=== PATIENT | female | born 1940 | race Caucasian/White ===

== ENCOUNTER 2018-01-11 19:02 | Observation (INO) | payer OTHER, BC ==
--- NOTE | 2018-01-11 19:42 | PDOC ---
History of Present Illness - General Chief Complaint: Back Pain Stated Complaint: BACK PAIN History Source: Patient - History of Present Illness Initial Comments: The patient is a 77F with a history of A-fib (xarelto), HTN and OA who presents with 12 days of intermittent right lower back pain and 2 days of dizziness with 4 episodes of retching this morning. She reports that 12d ago picked up two heavy cartons, was turning to the right, and experienced a spasm in her right lower back. The pain was described as sharp, non-radiating, and not associated with any other symptoms. She tried taking Tylenol and Ibuprofen with little relief. She was then evaluated by her PCP who prescribed lidoderm patches and Robaxin which she started taking two days ago. She endorses pain relief from the robaxin and a reduction in the number and length of time of spasms since that time. However, she has noticed 2d of intermittent dizziness which she associates with the Robaxin usage. She states that she was feeling dizzy yesterday s/p Robaxin. This morning she also experienced dizziness when standing from getting out of bed before taking her medication which was associated with diaphoresis. She denies chest pain, SOB , fall, or changes in vision or sensation 01/11/18 20:14 Past History - Past Medical History Allergies/Adverse Reactions: Allergies Allergy/AdvReac Type Severity Reaction Status Date / Time ampicillin [Ampicillin] Allergy Verified 01/11/18 19:48 Penicillins Allergy Verified 01/11/18 19:48 Sulfa (Sulfonamide Allergy Verified 01/11/18 19:48 Antibiotics) Tetracyclines Allergy Verified 01/11/18 19:48 erythromycin base AdvReac Rash Verified 01/11/18 19:48 [Erythromycin Base] Home Medications: Ambulatory Orders Aspirin 81 mg PO DAILY 10/04/12 Fluoxetine HCl [Prozac] 20 mg PO DAILY 10/04/12 Oxybutynin Chloride [Oxybutynin Chloride ER] 10 mg PO HS 10/04/12 Atorvastatin Ca [Lipitor] 10 mg PO HS 09/03/13 Diclofenac Sodium 75 mg PO BID 09/03/13 Diltiazem HCl [Diltiazem 24Hr ER] 120 mg PO DAILY 09/03/13 L.acidoph,Paracasei, B.lactis [Probiotic] 1 each PO DAILY 05/02/16 Metoprolol Succinate [Toprol XL -] 25 mg PO DAILY 05/02/16 Furosemide [Lasix -] 20 mg PO DAILY #30 tablet 05/03/16 Metoprolol Succinate [Toprol XL -] 25 mg PO DAILY tab.sr.24h 05/03/16 Rivaroxaban [Xarelto -] 20 mg PO DAILY #30 tablet 05/03/16 Solifenacin Succinate [Vesicare -] 5 mg PO DAILY tab 05/03/16 Anemia: No Asthma: No Cancer: No Cardiac Disorders: Yes (arrythmia/chestpain) CVA: Yes (TIA) COPD: No CHF: No Dementia: No Diabetes: No GI Disorders: No Disorders: No HTN: Yes Hypercholesterolemia: Yes Liver Disease: No Seizures: No Thyroid Disease: No - Surgical History Abdominal Surgery: No Appendectomy: No Cardiac Surgery: No Cholecystectomy: No Lung Surgery: No Neurologic Surgery: No Orthopedic Surgery: Yes (arthroscopic/rt knee) - Suicide/Smoking/Psychosocial Hx Smoking Status: No Smoking History: Never smoked Have you smoked in the past 12 months: No Number of Cigarettes Smoked Daily: 0 Cigars Per Day: 0 Hx Alcohol Use: No Drug/Substance Use Hx: No Substance Use Type: None Hx Substance Use Treatment: No Review of Systems - Review of Systems Able to Perform ROS?: Yes Comments:: GENERAL/CONSTITUTIONAL: No fever or chills. HEAD, EYES, EARS, NOSE AND THROAT: No change in vision. No ear pain or discharge. No sore throat. CARDIOVASCULAR: +BLE swelling; No chest pain or shortness of breath RESPIRATORY: No cough, wheezing, or hemoptysis. GASTROINTESTINAL: +N/V associated with dizziness; denies abdominal pain, diarrhea, or blood in stool GENITOURINARY: No dysuria, frequency, or change in urination MUSCULOSKELETAL: per HPI SKIN: No rash NEUROLOGIC: No headache, loss of consciousness, or change in strength/sensation ENDOCRINE: No increased thirst. No abnormal weight change HEMATOLOGIC/LYMPHATIC: No anemia, easy bleeding, or history of blood clots 01/11/18 20:01 Is the patient limited French proficient: No *Physical Exam - Physical Exam Comments: GENERAL: Awake, alert, and fully oriented, in no acute distress HEAD: No signs of trauma, normocephalic, atraumatic EYES: PERRLA, EOMI, sclera anicteric, conjunctiva clear ENT: Hearing grossly normal, nares patent, oropharynx clear without exudates. Moist mucosa NECK: Normal ROM, supple, no lymphadenopathy, JVD, or masses LUNGS: No distress, speaks full sentences, clear to auscultation bilaterally HEART: Bradycardic, regular rhythm, no murmurs appreciated, peripheral pulses normal and equal bilaterally ABDOMEN: Soft, nontender, normoactive bowel sounds BACK: Right lower back tenderness to palpation. No bruising noted or mass palpated. EXTREMITIES : BLE 2+ edema. Normal range of motion. No clubbing or cyanosis. NEUROLOGICAL: Cranial nerves II through XII grossly intact. Normal speech, walks with walker SKIN: Warm, Dry 01/11/18 20:01 ED Treatment Course - LABORATORY CBC & Chemistry Diagram: 01/11/18 21:48 01/11/18 22:38 Medical Decision Making - Medical Decision Making The patient is a 77F with a history of afib (xarelto), HTN and OA who presents with 12 days of back spasm, 2 days of dizziness, and 4 episodes of retching this morning Ddx: Back spasm, Orthostatic hypotension, Medication side-effect, cardiogenic/ dysrhythmia ED Course BMP, CBC, cardiac enzymes, ECG, CXR Orthostatic vitals Will give Flexeril 10mg PO once for back spasm 01/11/18 20:07 Patient sitting in chair as pain is better while sitting versus laying. Denies current dizziness. Is tolerating PO. Breathing comfortably on room air. Right lower back mildly TTP 01/11/18 21:02 ECG significant for Bradycarida, a-fib with regular rhythm Pending CMP and Cardiac enzyme re-draw Will plan to discharge patient with Flexeril and PCP f/u if symptoms improved and cardiac/metabolic w/u negative I have transferred care of the patient to Dr. Keith and discussed the clinical presentation, work-up and ED course thus far. 01/12/18 00:01 *DC/Admit/Observation/Transfer Diagnosis at time of Disposition: Back spasm Atrial fibrillation Qualifiers: Atrial fibrillation type: chronic Qualified Code(s): I48.2 - Chronic atrial fibrillation - Discharge Dispostion Disposition: HOME Condition at time of disposition: Stable Decision to Admit order: No - Referrals Referrals: Vira Brownlee MD [Primary Care Provider] - - Patient Instructions Printed Discharge Instructions: DI for Dizziness-Nonvertigo, DI for Back Spasm - Post Discharge Activity
[2018-01-11 20:05] LABS: URINE APPEARANCE CLOUDY; URINE BILIRUBIN NEGATIVE (<2.0 mg/dL); URINE COLOR LTYELLOW; URINE GLUCOSE (UA) NEGATIVE (NEGATIVE); URINE KETONE NEGATIVE (NEGATIVE); URINE NITRITE NEGATIVE (NEGATIVE); URINE PROTEIN NEGATIVE (NEGATIVE); URINE UROBILINOGEN NEGATIVE mg/dL (0.2-1.0)
[2018-01-11 20:08] LABS: URINE LEUK ESTERASE 1+ (NEGATIVE)
[2018-01-11 20:13] LABS: EPI CELLS RARE /HPF (FEW); GRANULAR CASTS 1 /lpf
[2018-01-11 22:14] LABS: HEMOGLOBIN 15.1 GM/dL (10.7-15.3); MCH 30.5 pg (25.7-33.7); MCHC 33.5 g/dl (32.0-36.0); MEAN CELL VOLUME 90.9 fl (80-96); MEAN PLT VOLUME 8.3 fl (7.5-11.1); PLATELET COUNT 324 K/MM3 (134-434); RBC 4.95 M/mm3 (3.60-5.2); RDW 13.7 % (11.6-15.6)
[2018-01-11] MEDS ORDERED: CYCLOBENZAPRINE HCL 10 MG TABLET (FP) ONE (22:47)
[2018-01-11] MEDS ORDERED: CYCLOBENZAPRINE HCL 10 MG TABLET (FP) PO STA (22:50)
--- NOTE | 2018-01-11 23:32 | PDOC ---
Attending Attestation - HPI HPI: 01/12/18 00:08 The patient is a 77 year old Female with a significant past medical history of A -fib (on xarelto), HTN and OA, who presents with intermittent right lower back pain since picking up two heavy cartons 12 days ago, as well as, new onset of dizziness for 48 hours. She states she was lifting the heavy cartong while twisting right when she felt "a spasm" in her right lower back. she described the pain as sharp, non-radiating, and not associated with any other symptoms. She reportedly tried Tylenol and Ibuprofen with little relief. She was then evaluated by her PCP who prescribed lidocaine patches and Robaxin which she started taking two days ago and offered mild pain relief She denies any bowel or fecal incontinence. She denies any new bladder changes, - Physicial Exam PE: 01/12/18 00:13 GENERAL: Well developed, well nourished. Awake and alert. No acute distress. HEENT: Normocephalic, atraumatic. PERRLA, EOMI. No conjunctival pallor. Sclera are non- icteric. Moist mucous membranes. Oropharynx is clear. NECK: Supple. Full ROM. No JVD. Carotid pulses 2+ and symmetric, without bruits. No thyromegaly. No lymphadenopathy. CARDIOVASCULAR: (+) Irregularly irregular. No murmurs, rubs, or gallops. Distal pulses are 2+ and symmetric. PULMONARY: No evidence of respiratory distress. Lungs clear to auscultation bilaterally. No wheezing, rales or rhonchi. ABDOMINAL: (+) protuberant. Soft. Non-tender. Non-distended. No rebound or guarding. No organomegaly. Normoactive bowel sounds. MUSCULOSKELETAL (+) paraspinal tenderness near L1,L2. Normal range of motion at all joints. No bony deformities or tenderness. No CVA tenderness. EXTREMITIES: (+) Chronic venous stasis. No cyanosis. No clubbing. No edema. No calf tenderness. SKIN: Warm and dry. Normal capillary refill. No rashes. No jaundice. NEUROLOGICAL: Alert, awake, appropriate. Cranial nerves 2-12 intact. Normoreflexic in the upper and lower extremities. Normal speech. Toes are down-going bilaterally. Walks assisted with walker at baseline. PSYCHIATRIC: Cooperative. Good eye contact. Appropriate mood and affect. - Medical Decision Making 01/12/18 00:14 Documentation prepared by Carolin Davila, acting as medical safety director for Rosa Ball MD
[2018-01-12] MEDS ORDERED: ACETAMINOPHEN 1000 MG/100 ML VIAL (NON FORMULARY) IVPB ONE (00:55)
[2018-01-12] MEDS ORDERED: ACETAMINOPHEN INJECTION 100 ML IVPB ONE (01:12)
[2018-01-12 01:19] LABS: ALBUMIN 3.1 g/dl (3.4-5.0); ALK PHOS 79 U/L (45-117); ANION GAP 9 (8-16); BILIRUBIN,TOTAL 0.4 mg/dL (0.2-1.0); BLOOD UREA NITROGEN 18 mg/dL (7-18); CALCIUM 9.2 mg/dL (8.5-10.1); CHLORIDE 103 mmol/L (98-107); CO2 28 mmol/L (21-32); CREATININE 0.9 mg/dL (0.55-1.02); GLUCOSE,RANDOM 160 mg/dL (74-106); SGPT/ALT 21 U/L (12-78); SODIUM 140 mmol/L (136-145); TOT PROT 6.7 g/dl (6.4-8.2)
[2018-01-12 01:25] LABS: POTASSIUM 4.3 mmol/L (3.5-5.1); SGOT/AST 25 U/L (15-37)
[2018-01-12] MEDS ORDERED: morphine CARPU-JECT 2 MG/1 ML DISP.SYRIN IVPUSH ONE (02:29)
[2018-01-12] MEDS ORDERED: MORPHINE SULFATE 2 MG/ML VIAL ONE (02:34)
--- NOTE | 2018-01-12 02:38 | PDOC ---
*Physical Exam - Vital Signs Last Vital Signs Temp Pulse Resp BP Pulse Ox 98.0 F 52 L 18 146/98 100 01/11/18 19:05 01/11/18 19:05 01/11/18 19:05 01/11/18 19:05 01/11/18 19:05 - Physical Exam Comments: General: Comfortable sitting up in chair HEENT: PERRL, EOMI, MMM, voice normal, normal neck ROM, no LAD Cards: Bradycardic and irregular, no murmur appreciated Pulm: Comfortable on room air, clear to auscultation bilaterally Abd: Soft, nontender, nondistended Back: TTP on lower right back. No step-offs or deformities noted : No CVA tenderness Ext: Atraumatic. 2+ b/l LE edema. ROM intact. Strength 5/5 and equal bilaterally Vasc: Extremities WWP. Palpable radial pulses bilaterally Neuro: A&Ox3, CN grossly intact, normal speech, motor/sensory grossly intact and symmetric Psych: Mood appropriate to situation ED Treatment Course - LABORATORY CBC & Chemistry Diagram: 01/11/18 21:48 01/12/18 00:30 - ADDITIONAL ORDERS Additional order review: Laboratory Results 01/12/18 01/12/18 01/11/18 00:30 00:30 22:38 Sodium 140 Cancelled Potassium 4.3 Cancelled Chloride 103 Cancelled Carbon Dioxide 28 Cancelled Anion Gap 9 Cancelled BUN 18 Cancelled Creatinine 0.9 Cancelled Creat Clearance w eGFR > 60 Cancelled Random Glucose 160 H Cancelled Calcium 9.2 Cancelled Total Bilirubin 0.4 Cancelled AST 25 Cancelled ALT 21 Cancelled Alkaline Phosphatase 79 Cancelled Creatine Kinase 69 Cancelled Troponin I < 0.02 Cancelled Total Protein 6.7 Cancelled Albumin 3.1 L Cancelled Urine Color Urine Appearance Urine pH Ur Specific [place] Urine Protein Urine Glucose (UA) Urine Ketones Urine Blood Urine Nitrite Urine Bilirubin Urine Urobilinogen Ur Leukocyte Esterase Urine WBC (Auto) Urine RBC (Auto) Ur Epithelial Cells Granular Casts 01/11/18 19:50 Sodium Potassium Chloride Carbon Dioxide Anion Gap BUN Creatinine Creat Clearance w eGFR Random Glucose Calcium Total Bilirubin AST ALT Alkaline Phosphatase Creatine Kinase Troponin I Total Protein Albumin Urine Color Ltyellow Urine Appearance Cloudy Urine pH 7.0 Ur Specific [place] 1.009 Urine Protein Negative Urine Glucose (UA) Negative Urine Ketones Negative Urine Blood Negative Urine Nitrite Negative Urine Bilirubin Negative Urine Urobilinogen Negative Ur Leukocyte Esterase 1+ H Urine WBC (Auto) 15 Urine RBC (Auto) <1 Ur Epithelial Cells Rare Granular Casts 1 01/11/18 21:48 RBC 4.95 MCV 90.9 MCHC 33.5 RDW 13.7 MPV 8.3 - Medications Given in the ED: ED Medications Discontinued Medications Generic Name Dose Route Start Last Admin Trade Name Rico PRN Reason Stop Dose Admin Acetaminophen 1,000 mg 01/12/18 00:55 01/12/18 01:18 Ofirmev Injection - IVPB 01/12/18 00:56 1,000 mg ONCE ONE Administration Cyclobenzaprine HCl 10 mg 01/11/18 22:50 01/11/18 22:51 Flexeril - PO 01/11/18 22:51 10 mg ONCE STA Administration Medical Decision Making - Medical Decision Making 01/12/18 02:39 Rhonda Monroy is a 77yo woman with a PMH of a-fib, HTN, and OA who presents with low back pain for 12 days, improved after starting lidocaine patches and methocarbamol, and now with dizziness and diaphoresis associated with using methocarbamol. - Workup so far is notable for mild WBC elevation to 11, UA suggestive of possible UTI. - CMP returned without any concerning abnormalities - Xray spine ordered to evaluate for possible spinal fracture - Morphine for continued back pain 01/12/18 03:14 - Xrays of lumbar spine reviewed. Concern for compression fracture at L2. - Ms Monroy questioned about any possible falls. Denies that she fell, only started to have pain when lifting boxes - Reports continued back pain not improved with morphine. - CT lumbar spine ordered to better evaluate possible fracture. Discussed with Ms Monroy who agrees to the CT. 01/12/18 05:23 - Decision made to admit to obs due to intractable back pain. Not improved by pain medications in ED - CT still pending, will evaluate when completed - Spoke to hospitalist regarding admission to obs. Discussed with Dr Ball and Dr Tidwell. *DC/Admit/Observation/Transfer Diagnosis at time of Disposition: Back spasm Atrial fibrillation Qualifiers: Atrial fibrillation type: chronic Qualified Code(s): I48.2 - Chronic atrial fibrillation Compression fracture of lumbar vertebra Qualifiers: Encounter type: initial encounter Lumbar vertebra fracture level: L2 Fracture type: closed Qualified Code(s): S32.020A - Wedge compression fracture of second lumbar vertebra, initial encounter for closed fracture - Discharge Dispostion Condition at time of disposition: Stable Decision to Admit order: Yes - Referrals Referrals: Vira Brownlee MD [Primary Care Provider] - - Patient Instructions - Post Discharge Activity
[2018-01-12] MEDS ORDERED: KETOROLAC TROMETHAMINE 30 MG/1 ML VIAL IVPUSH ONE (04:14)
[2018-01-12] MEDS ORDERED: KETOROLAC TROMETHAMINE 30 MG/1 ML VIAL ONE (04:17)
[2018-01-12] MEDS ORDERED: SENNOSIDES 8.6MG TABLET (FP) PO PRN (05:28)
[2018-01-12] MEDS ORDERED: DOCUSATE SODIUM 100 MG CAPSULE (FP) PO PRN (05:28)
[2018-01-12] MEDS ORDERED: MORPHINE SULFATE 2 MG/ML VIAL IVPUSH PRN (05:28)
[2018-01-12] MEDS ORDERED: KETOROLAC TROMETHAMINE 15 MG/ML VIAL IVPUSH PRN (05:28)
--- NOTE | 2018-01-12 05:43 | PN ---
Teaching Attending Note Name of Resident: Mallorie Charles ATTENDING PHYSICIAN STATEMENT I saw and evaluated the patient. I reviewed the resident's note and discussed the case with the resident. I agree with the resident's findings and plan as documented. SUBJECTIVE: The patient is a 77 year old Female with a significant past medical history of A -fib (on xarelto), HTN and OA, who presents with intermittent right lower back pain since picking up two heavy cartons 12 days ago, as well as, new onset of dizziness for 48 hours. She states she was lifting the heavy carton (of books) while twisting right when she felt "a spasm" in her right lower back. She described the pain as sharp, non-radiating, and not associated with any other symptoms. She uses a walker to get around. She reportedly tried Tylenol and Ibuprofen with little relief. She was then evaluated by her PCP who prescribed lidocaine patches and Robaxin which she started taking two days ago and offered mild pain relief. She denies any bowel or fecal incontinence. She denies any new bladder changes, OBJECTIVE: Obese and in pain. Sitting on wheelchair. Vital Signs Period Temp Pulse Resp BP Sys/Kent Pulse Ox Last 24 Hr 98.0 F 52 18 146/98 100 HEENT: No Jaundice, eye redness or discharge, PERRLA, EOMI. Normocephalic, atraumatic. External ears are normal and hearing is grossly intact. No nasal discharge. Neck: Supple, nontender. No palpable adenopathy or thyromegaly. No JVD Chest: Good effort. Clear to auscultation and percussion. Heart: Regular. No S3, rub or murmur Abdomen: Not distended, soft, nontender and no HSM. No rebound or guarding. Normoactive bowel sounds. Ext: Peripheral pulses intact. No leg edema. Skin: Warm and dry. No petechiae, rash or ecchymosis. Neuro: Alert. Oriented x3. CN 2-12 grossly intact. Point tenderness in lumbosacral area. Sensation grossly intact in all four extremities and DTR are symmetric. Home Medications Medication Instructions Recorded Aspirin 81 mg PO DAILY 10/04/12 Fluoxetine HCl [Prozac] 20 mg PO DAILY 10/04/12 Oxybutynin Chloride [Oxybutynin 10 mg PO HS 10/04/12 Chloride ER] Atorvastatin Ca [Lipitor] 10 mg PO HS 09/03/13 Diclofenac Sodium 75 mg PO BID 09/03/13 Diltiazem HCl [Diltiazem 24Hr ER] 120 mg PO DAILY 09/03/13 L.acidoph,Paracasei, B.lactis 1 each PO DAILY 05/02/16 [Probiotic] Metoprolol Succinate [Toprol XL -] 25 mg PO DAILY 05/02/16 Furosemide [Lasix -] 20 mg PO DAILY #30 tablet 05/03/16 Metoprolol Succinate [Toprol XL -] 25 mg PO DAILY tab.sr.24h 05/03/16 Rivaroxaban [Xarelto -] 20 mg PO DAILY #30 tablet 05/03/16 Solifenacin Succinate [Vesicare -] 5 mg PO DAILY tab 05/03/16 Current Medications Generic Name Dose Route Start Last Admin Trade Name Freq PRN Reason Stop Dose Admin Aspirin 81 mg 01/12/18 10:00 Asa - PO DAILY [facility] Atorvastatin Calcium 10 mg 01/12/18 22:00 Lipitor - PO HS [facility] Diltiazem HCl 120 mg 01/12/18 10:00 Cardizem Cd - PO DAILY [facility] Docusate Sodium 100 mg 01/12/18 05:28 Colace - PO BID PRN CONSTIPATION Fluoxetine HCl 20 mg 01/12/18 10:00 Prozac - PO DAILY [facility] Furosemide 20 mg 01/12/18 10:00 Lasix - PO DAILY [facility] Ketorolac Tromethamine 15 mg 01/12/18 05:28 Toradol Injection - IVPUSH 01/17/18 05:27 Q6H PRN PAIN LEVEL 1-5 Lactobacillus Acidophilus 1 tab 01/12/18 10:00 Bacid - PO DAILY [facility] Metoprolol Succinate 25 mg 01/12/18 10:00 Toprol Xl - PO DAILY [facility] Morphine Sulfate 2 mg 01/12/18 05:28 Morphine Sulfate IVPUSH Q4H PRN PAIN LEVEL 6-10 Oxybutynin Chloride 10 mg 01/12/18 22:00 Ditropan - PO HS [facility] Rivaroxaban 20 mg 01/12/18 18:00 Xarelto - PO DAILY@1800 [facility] Senna 2 tab 01/12/18 05:28 Senna - PO HS PRN CONSTIPATION Solifenacin 5 mg 01/12/18 10:00 Vesicare - PO DAILY MARK Abnormal Lab Results 01/11/18 01/11/18 01/12/18 19:50 21:48 00:30 WBC 11.0 H Random Glucose 160 H Albumin 3.1 L Ur Leukocyte Esterase 1+ H ASSESSMENT AND PLAN: 1. Intractable Low Back Pain - Xray shows possible L2 compression fracture and Lumbosacral CT scan is pending. Based on the results of the CT scan may need to get MRI of lumbosacral spine. Will treat with IV morphine, IV toraldol, prednisone 40 mg po qd, warm compress and lidocaine patch. Consult PT, neurology and Ortho. 2. Afib - Rate controlled. Continue xarelto 3. Incompletely-treated UTI - Was treated with Cipro 2 weeks ago for UTI. Has pyuria (15) and leukocyte esterase but no UTI symptoms. Will get a straight cath sample of urine for repeat UA to decide whether further treatment is warranted. 4. Obesity - Will provide patient all the necessary assistance , counseling and positive reinforcement to facilitate weight loss. Consult supervisor inspection and testing. 5. Hyperglycemia - Will check HbA1c - may have prediabetes. 6. DVT prophylaxis - Heparin 5000u sq tid. 7. Advance directives - Full code
--- NOTE | 2018-01-12 06:25 | HP ---
CHIEF COMPLAINT: Low back pain PCP: HISTORY OF PRESENT ILLNESS: Patient is a 77 year old female with past medical history of A.Fib (on Xarelto) , CHF, HTN and OA, came in the ED c/o sharp, nonradiating low back pain worsened with activity. It started 12 days ago when patient lifted heavy boxes and immediately experienced low back pain. She took Tylenol and Ibuprofen which only provided minimal relief. Two days prior, with persistence of low back pain , patient visited her PCP and was given lidocaine patches and Robaxin, which provided mild relief. Persistence of the low back pain, worse on the right side , prompted patient to go to ED. Patient denies bowel changes, bladder incontinence, fever, N/V, numbness or tingling. ER course was notable for: (1)WBC 11.0 (2)Leukocyte esterase on UA +1 (3)Lumbar X-ray - L2 spine compression Recent Travel: Denies recent travel PAST MEDICAL HISTORY: Atrial Fibrillation Hypertension Osteoarthritis CHF PAST SURGICAL HISTORY: Social History: Smoking:nonsmoker Alcohol:non ETOH use Drugs: no illicit drug use Family History: Allergies ampicillin [Ampicillin] Allergy (Verified 01/11/18 19:48) Penicillins Allergy (Verified 01/11/18 19:48) Sulfa (Sulfonamide Antibiotics) Allergy (Verified 01/11/18 19:48) Tetracyclines Allergy (Verified 01/11/18 19:48) erythromycin base [Erythromycin Base] Adverse Reaction (Verified 01/11/18 19:48) Rash Clindamycin Allergy HOME MEDICATIONS: Home Medications Medication Instructions Recorded Aspirin 81 mg PO DAILY 10/04/12 Fluoxetine HCl [Prozac] 20 mg PO DAILY 10/04/12 Oxybutynin Chloride [Oxybutynin 10 mg PO HS 10/04/12 Chloride ER] Atorvastatin Ca [Lipitor] 10 mg PO HS 09/03/13 Diclofenac Sodium 75 mg PO BID 09/03/13 Diltiazem HCl [Diltiazem 24Hr ER] 120 mg PO DAILY 09/03/13 L.acidoph,Paracasei, B.lactis 1 each PO DAILY 05/02/16 [Probiotic] Metoprolol Succinate [Toprol XL -] 25 mg PO DAILY 05/02/16 Furosemide [Lasix -] 20 mg PO DAILY #30 tablet 05/03/16 Metoprolol Succinate [Toprol XL -] 25 mg PO DAILY tab.sr.24h 05/03/16 Rivaroxaban [Xarelto -] 20 mg PO DAILY #30 tablet 05/03/16 Solifenacin Succinate [Vesicare -] 5 mg PO DAILY tab 05/03/16 REVIEW OF SYSTEMS CONSTITUTIONAL: Absent: fever, chills, diaphoresis, generalized weakness, malaise, loss of appetite, weight change HEENT: Absent: rhinorrhea, nasal congestion, throat pain, throat swelling, difficulty swallowing, mouth swelling, ear pain, eye pain, visual changes CARDIOVASCULAR: Absent: chest pain, syncope, palpitations, irregular heart rate, lightheadedness , peripheral edema RESPIRATORY: Absent: cough, shortness of breath, dyspnea with exertion, orthopnea, wheezing, stridor, hemoptysis GASTROINTESTINAL: Absent: abdominal pain, abdominal distension, nausea, vomiting, diarrhea, constipation, melena, hematochezia GENITOURINARY: Absent: dysuria, frequency, urgency, hesitancy, hematuria, flank pain, genital pain MUSCULOSKELETAL: +low back pain Absent: myalgia, arthralgia, joint swelling, neck pain SKIN: Absent: rash, itching, pallor HEMATOLOGIC/IMMUNOLOGIC: Absent: easy bleeding, easy bruising, lymphadenopathy, frequent infections ENDOCRINE: Absent: unexplained weight gain, unexplained weight loss, heat intolerance, cold intolerance NEUROLOGIC: Absent: headache, focal weakness or paresthesias, dizziness, unsteady gait, seizure, mental status changes, bladder or bowel incontinence PSYCHIATRIC: Absent: anxiety, depression, suicidal or homicidal ideation, hallucinations. PHYSICAL EXAMINATION Vital Signs - 24 hr 01/11/18 19:05 Temperature 98.0 F Pulse Rate 52 L Respiratory 18 Rate Blood Pressure 146/98 O2 Sat by Pulse 100 Oximetry (%) GENERAL: Awake, alert, and fully oriented, in no acute distress. HEAD: Normal with no signs of trauma. EYES: Pupils equal, round and reactive to light, extraocular movements intact, sclera anicteric, conjunctiva clear. No lid lag. EARS, NOSE, THROAT: Ears normal, nares patent, oropharynx clear without exudates. Moist mucous membranes. NECK: Normal range of motion, supple without lymphadenopathy, JVD, or masses. LUNGS: Breath sounds equal, clear to auscultation bilaterally. No wheezes, and no crackles. No accessory muscle use. HEART: Regular rate and rhythm, normal S1 and S2 without murmur, rub or gallop. ABDOMEN: Soft, nontender, not distended, normoactive bowel sounds. No hepatomegaly or splenomegaly. MUSCULOSKELETAL: Limited ROM on flexion, extension, lateral flexion and rotation of back. +Tenderness on R lower back. Sensation intact on b/l LE UPPER EXTREMITIES: 2+ pulses, warm, well-perfused. No cyanosis. No clubbing. No peripheral edema. LOWER EXTREMITIES: 2+ pulses, warm, well-perfused. No calf tenderness. No peripheral edema. NEUROLOGICAL: Cranial nerves II-XII intact. Normal speech. Normal gait. PSYCHIATRIC: Cooperative. Good eye contact. Appropriate mood and affect. SKIN: Warm, dry, normal turgor, no rashes or lesions noted, normal capillary refill. Laboratory Results - last 24 hr 01/11/18 01/11/18 01/11/18 19:50 21:48 22:38 WBC 11.0 H RBC 4.95 Hgb 15.1 Hct 45.0 D MCV 90.9 MCH 30.5 MCHC 33.5 RDW 13.7 Plt Count 324 D MPV 8.3 Sodium Cancelled Potassium Cancelled Chloride Cancelled Carbon Dioxide Cancelled Anion Gap Cancelled BUN Cancelled Creatinine Cancelled Creat Clearance w eGFR Cancelled Random Glucose Cancelled Calcium Cancelled Total Bilirubin Cancelled AST Cancelled ALT Cancelled Alkaline Phosphatase Cancelled Creatine Kinase Cancelled Troponin I Cancelled Total Protein Cancelled Albumin Cancelled Urine Color Ltyellow Urine Appearance Cloudy Urine pH 7.0 Ur Specific [place] 1.009 Urine Protein Negative Urine Glucose (UA) Negative Urine Ketones Negative Urine Blood Negative Urine Nitrite Negative Urine Bilirubin Negative Urine Urobilinogen Negative Ur Leukocyte Esterase 1+ H Urine WBC (Auto) 15 Urine RBC (Auto) <1 Ur Epithelial Cells Rare Granular Casts 1 01/12/18 01/12/18 00:30 00:30 WBC RBC Hgb Hct MCV MCH MCHC RDW Plt Count MPV Sodium 140 Potassium 4.3 Chloride 103 Carbon Dioxide 28 Anion Gap 9 BUN 18 Creatinine 0.9 Creat Clearance w eGFR > 60 Random Glucose 160 H Calcium 9.2 Total Bilirubin 0.4 AST 25 ALT 21 Alkaline Phosphatase 79 Creatine Kinase 69 Troponin I < 0.02 Total Protein 6.7 Albumin 3.1 L Urine Color Urine Appearance Urine pH Ur Specific [place] Urine Protein Urine Glucose (UA) Urine Ketones Urine Blood Urine Nitrite Urine Bilirubin Urine Urobilinogen Ur Leukocyte Esterase Urine WBC (Auto) Urine RBC (Auto) Ur Epithelial Cells Granular Casts ASSESSMENT/PLAN: Patient is a 77 year old female with past medical history of A.Fib (on Xarelto) , CHF, HTN and OA, came in the ED c/o sharp, nonradiating low back pain worsened with activity. #L2 spine compression: Patient has point tenderness on the R, limited ROM. -CT scan pending for further evaluation. -Depending on CT scan results, may request for MRI for further assessment of lumbosacral spine. -Give IV morphine and IV Toradol for pain. -Prednisone 40 mg PO qd. -Apply warm compress on affected area. -PT consult. -Orthopedic consult. -Neurology consult. #UTI: Patient had UTI 2 weeks ago treated with Ciprofloxacin, but current labs showed WBC 11.5, Urine Leukocyte esterase +1 -Possibly incomplete treatment of previous UTI. -Straight catheter for repeat urinalysis to decide if further treatment is needed. #CHF: chronic -continue Aspirin 81 mg #Hypertension: chronic -continue Metoprolol 25 mgPO #FEN -Low salt diet #Prophylaxis -Heparin 5000 sq TID #Disposition -admit to obs -full code Visit type - Emergency Visit Emergency Visit: Yes ED Registration Date: 01/12/18 Care time: The patient presented to the Emergency Department on the above date and was hospitalized for further evaluation of their emergent condition. - New Patient This patient is new to me today: Yes Date on this admission: 01/12/18 - Critical Care Critical Care patient: No Hospitalist Screening - Colonoscopy Questionnaire Colonoscopy Questionnaire: Colonoscopy Questionnaire - Patient: 50 - 75 years old and never had a screening colonoscopy: No History of colon or rectal polyps, or CA: Yes History of IBD, Crohn's disease or UC: Unknown History of abdominal radiation therapy as a child: Unknown - Relative: 1 with colon or rectal CA, or polyps at age 60 or younger: Unknown Colon or rectal CA diagnosed at age 45 or younger: Unknown Multiple relatives with colon or rectal CA: Unknown - Outcome: Screening Result: Positive Screen
[2018-01-12] MEDS ORDERED: predniSONE 20 MG TABLET (UD) ONE (06:43)
[2018-01-12] MEDS: predniSONE 20 MG TABLET (UD) PO SCH (06:48)
[2018-01-12 07:24] LABS: HEMATOCRIT 38.7 % (32.4-45.2); HEMOGLOBIN 13.4 GM/dL (10.7-15.3); MCH 31.1 pg (25.7-33.7); MCHC 34.7 g/dl (32.0-36.0); MEAN CELL VOLUME 89.7 fl (80-96); MEAN PLT VOLUME 9.4 fl (7.5-11.1); PLATELET COUNT 344 K/MM3 (134-434); RBC 4.31 M/mm3 (3.60-5.2); RDW 13.9 % (11.6-15.6); WHITE BLOOD COUNT 10.3 K/mm3 (4.0-10.0)
[2018-01-12 08:04] LABS: ANION GAP 8 (8-16); BLOOD UREA NITROGEN 18 mg/dL (7-18); CALCIUM 9.2 mg/dL (8.5-10.1); CHLORIDE 101 mmol/L (98-107); CO2 30 mmol/L (21-32); CREATININE 0.8 mg/dL (0.55-1.02); GLUCOSE,RANDOM 106 mg/dL (74-106); MAGNESIUM 2.1 mg/dL (1.8-2.4); POTASSIUM 4.2 mmol/L (3.5-5.1); SODIUM 139 mmol/L (136-145)
[2018-01-12 08:33] LABS: INR 3.19 (0.83-1.09); PROTHROMBIN TIME (PATIENT) 36.1 SEC (9.7-13.0)
[2018-01-12] MEDS: SOLIFENACIN SUCCINATE 5 MG TAB (FP) PO SCH (09:42)
[2018-01-12] MEDS: FUROSEMIDE 20 MG TABLET (FP) PO SCH (09:42)
[2018-01-12] MEDS: LACTOBACILLUS ACIDOPHILUS 1 TABLET PO SCH (09:42)
[2018-01-12] MEDS ORDERED: ASPIRIN 81 MG CHEWABLE TABLETS PO SCH (10:00)
[2018-01-12] MEDS ORDERED: metoPROLOL SUCCINATE 25 MG TAB.SR.24H (FP) PO SCH (10:00)
--- NOTE | 2018-01-12 10:17 | CON.NEURO ---
Consult Consult Specialty:: Sin Referred by:: Staff Reason for Consultation:: Back pain - History of Present Illness History of Present Illness: this is a 77-year-old right-handed female patient who presented to the hospital with acute back pain neurology was called in to see the patient with a chief complaint of back pain. According to the patient she had a history of chronic low back pain patient describes pain crossing to the back patient denies any direct trauma to the back patient was carrying boxes recently. Patient denies any falls or recent whiplash injury. Patient with increasing difficulty with urinary frequency with no incontinence. Patient claims that taking [id number] analgesics does not help. Pain character Sharp No radiation mild numbness and tingling in the toes Relief by bedrest Patient was admitted to the floor for further treatment and management I reviewed the CAT scan of the lumbosacral spine. Present medical history A.Fib (on Xarelto), CHF, HTN and OA, - History Source History Provided By: Patient Limitations to Obtaining History: No Limitations - Past Medical History Cardio/Vascular: Yes: HTN, Hyperlipdemia Endocrine: Yes: Diabetes Mellitus - Alcohol/Substance Use Hx Alcohol Use: No - Smoking History Smoking history: Never smoked Have you smoked in the past 12 months: No Aproximately how many cigarettes per day: 0 Home Medications - Allergies Allergies/Adverse Reactions: Allergies Allergy/AdvReac Type Severity Reaction Status Date / Time ampicillin [Ampicillin] Allergy Verified 01/11/18 19:48 Penicillins Allergy Verified 01/11/18 19:48 Sulfa (Sulfonamide Allergy Verified 01/11/18 19:48 Antibiotics) Tetracyclines Allergy Verified 01/11/18 19:48 erythromycin base AdvReac Rash Verified 01/11/18 19:48 [Erythromycin Base] - Home Medications Home Medications: Ambulatory Orders Fluoxetine HCl [Prozac] 20 mg PO DAILY 10/04/12 Oxybutynin Chloride [Oxybutynin Chloride ER] 10 mg PO HS 10/04/12 Atorvastatin Ca [Lipitor] 10 mg PO HS 09/03/13 Diclofenac Sodium 75 mg PO BID 09/03/13 Diltiazem HCl [Diltiazem 24Hr ER] 120 mg PO DAILY 09/03/13 L.acidoph,Paracasei, B.lactis [Probiotic] 1 each PO DAILY 05/02/16 Furosemide [Lasix -] 20 mg PO DAILY #30 tablet 05/03/16 Rivaroxaban [Xarelto -] 20 mg PO DAILY #30 tablet 05/03/16 Solifenacin Succinate [Vesicare -] 5 mg PO DAILY tab 05/03/16 Famotidine [Pepcid] 20 mg PO DAILY 01/12/18 Metoprolol Succinate [Toprol XL -] 25 mg PO TID 01/12/18 Review of Systems - Review of Systems Constitutional: reports: No Symptoms Eyes: reports: No Symptoms Musculoskeletal: reports: Back Pain, Joint Pain, Joint Swelling Neurological: reports: No Symptoms Physical Exam-Neuro Vital Signs: Vital Signs Temperature 98.3 F 01/12/18 08:00 Pulse Rate 53 L 01/12/18 08:00 Respiratory Rate 20 01/12/18 08:00 Blood Pressure 119/56 01/12/18 08:00 O2 Sat by Pulse Oximetry (%) 100 01/12/18 07:15 Constitutional: Yes: Well Nourished Neck: Yes: WNL Labs: CBC, BMP 01/12/18 06:54 01/12/18 06:54 INR, PTT INR 3.19 (0.83-1.09) H* D 01/12/18 06:54 - Neuro Exam Level Of Consciousness: Yes: Oriented to Person, Oriented to Place Eyes: Yes: PERRLA Speech: WNL Dominant Hand: Right Cranial Nerves II-XII Intact: Yes Gag: Present DTR's: 1+ Left Bicep, 1+ Right Bicep, 1+ Left Brachioradialis, 1+ Right Brachioradialis Response to light touch: Abnormal Response to pain prick: Abnormal Response to temperature: Abnormal Response to vibration: Normal Motor Strength: 2/5: Left Leg, Right Leg, 3/5: Left Arm, Right Arm Gait: Deferred Imaging - Results Cat Scan: Image Reviewed Problem List - Problems (1) Back spasm Assessment/Plan: no evidence of myelopathy Degenerative disc disease Lumbar radiculopathy 1. Weight loss was advised. 2. Flexeril as a muscle relaxant. 3. Physical therapy. 4. Pain management. 5. Bedrest. 6. Flector patches Code(s): M62.830 - MUSCLE SPASM OF BACK (2) Compression fracture of lumbar vertebra Assessment/Plan: MRI of the lumbosacral spine Consider spine surgery evaluation thank you very much for the kind referral Code(s): S32.000A - WEDGE COMPRESSION FRACTURE OF UNSP LUMBAR VERTEBRA, INIT Qualifiers: Encounter type: initial encounter Lumbar vertebra fracture level: L2 Fracture type: closed Qualified Code(s): S32.020A - Wedge compression fracture of second lumbar vertebra, initial encounter for closed fracture
[2018-01-12] MEDS: FLUoxetine HCL 20 MG CAPSULE (FP) PO SCH (10:19)
[2018-01-12 10:42] LABS: GAMMA GLUTAMYL TRANSPEPTIDASE 23 U/L (5-85)
[2018-01-12] MEDS ORDERED: KETOROLAC TROMETHAMINE 30 MG/1 ML VIAL IVPUSH PRN (10:52)
[2018-01-12] MEDS ORDERED: CYCLOBENZAPRINE HCL 10 MG TABLET (FP) PO PRN (10:53)
[2018-01-12] MEDS: LIDOCAINE 5% TOPICAL PATCH TP SCH (11:18)
[2018-01-12 12:21] VITALS: BMI 47.6
--- NOTE | 2018-01-12 12:30 | PN ---
Teaching Attending Note Name of Resident: Marilyn Skinner ATTENDING PHYSICIAN STATEMENT I saw and evaluated the patient. I reviewed the resident's note and discussed the case with the resident. I agree with the resident's findings and plan as documented. SUBJECTIVE: No fever or chills, No weakness , numbness or tingling in LE . pain in Lower back with no radiation. OBJECTIVE: NAD Cv: RRR Lungs: CTAB Abd: obese, soft, Nt, ND, NN BS Ext: trace edema NEuro or LE; strenght 5/5 in hip flexion , knee flexion and extention , ankle dorsiflexion and plantar flexion . sensation to light touch NL. L knee jerk 0, R knee jerk 2+ . Babiski's + b/l . absent Ankle jerk b/l Straight leg raise: Neg b/l MS: No TTP over spine or paraspinal muscles. no erythema noted ASSESSMENT AND PLAN: 77 y/o lady with h/o A fib on xarelto, HTN and OA who presented with severe lower back pain after lifting up heavy boxes. 1- Lower back pain: no red flags. No compresion Fx, . possible disk herniation . anterior subluxation on CT scan is likely chronic. No motor deficit and neuro exam is notable only for b/l + Babinski's and decreased L knee jerk . - PT eval - toradol, lidocaine patch, flexeril and standing tylenol - dc morphine - cont steroids for a couple more days - doubt MRi will change management analyst _ neuro Recs are pending 2- H/o A fib, - cont her toprol ( confirmed with patient bottle ) TID - cont cardizem and xarelto 3- H/o HTN: cont meds dispo : PT eval. if cont to be in severe pain , mightneed rehab she lives home with a living aid
--- NOTE | 2018-01-12 12:53 | PN ---
Physical Exam: SUBJECTIVE: Patient is a 77 y/o female with a history of afib, HTN, osteoperosis, and CHF who presents with low back pain. She reports she is still having the pain and has frequent back spasms. She has no other complaints, denies dysuria or hematuris. No acute events overnight. OBJECTIVE: Vital Signs Period Temp Pulse Resp BP Sys/Kent Pulse Ox Last 24 Hr 98.0 F-98.3 F 52-53 18-20 119-149/56-98 97-100 GENERAL: The patient is awake, alert, and fully oriented, in no acute distress. HEAD: Normal with no signs of trauma. EYES: PERRL, extraocular movements intact, NECK: Trachea midline, full range of motion, supple. LUNGS: Breath sounds equal, clear to auscultation bilaterally HEART: Regular rate and rhythm ABDOMEN: Soft, nontender, nondistended, normoactive bowel sounds MSK: no tenderness to palpation on lower back, negative straight leg raise bilaterally, no numbness or tingling EXTREMITIES: 2+ pulses, warm, well-perfused NEUROLOGICAL: Cranial nerves II through XII grossly intact. Normal speech PSYCH: Normal mood, normal affect. SKIN: Warm, dry, normal turgor, no rashes or lesions noted Laboratory Results - last 24 hr 01/11/18 01/11/18 01/11/18 19:50 21:48 22:38 WBC 11.0 H RBC 4.95 Hgb 15.1 Hct 45.0 D MCV 90.9 MCH 30.5 MCHC 33.5 RDW 13.7 Plt Count 324 D MPV 8.3 PT with INR INR Sodium Cancelled Potassium Cancelled Chloride Cancelled Carbon Dioxide Cancelled Anion Gap Cancelled BUN Cancelled Creatinine Cancelled Creat Clearance w eGFR Cancelled Random Glucose Cancelled Calcium Cancelled Phosphorus Magnesium Total Bilirubin Cancelled GGT AST Cancelled ALT Cancelled Alkaline Phosphatase Cancelled Creatine Kinase Cancelled Troponin I Cancelled C-Reactive Protein Total Protein Cancelled Albumin Cancelled Urine Color Ltyellow Urine Appearance Cloudy Urine pH 7.0 Ur Specific [place] 1.009 Urine Protein Negative Urine Glucose (UA) Negative Urine Ketones Negative Urine Blood Negative Urine Nitrite Negative Urine Bilirubin Negative Urine Urobilinogen Negative Ur Leukocyte Esterase 1+ H Urine WBC (Auto) 15 Urine RBC (Auto) <1 Ur Epithelial Cells Rare Granular Casts 1 Blood Type Antibody Screen 01/12/18 01/12/18 01/12/18 00:30 00:30 06:54 WBC 10.3 H RBC 4.31 Hgb 13.4 Hct 38.7 MCV 89.7 MCH 31.1 MCHC 34.7 RDW 13.9 Plt Count 344 MPV 9.4 D PT with INR INR Sodium 140 Potassium 4.3 Chloride 103 Carbon Dioxide 28 Anion Gap 9 BUN 18 Creatinine 0.9 Creat Clearance w eGFR > 60 Random Glucose 160 H Calcium 9.2 Phosphorus Magnesium Total Bilirubin 0.4 GGT AST 25 ALT 21 Alkaline Phosphatase 79 Creatine Kinase 69 Troponin I < 0.02 C-Reactive Protein Total Protein 6.7 Albumin 3.1 L Urine Color Urine Appearance Urine pH Ur Specific [place] Urine Protein Urine Glucose (UA) Urine Ketones Urine Blood Urine Nitrite Urine Bilirubin Urine Urobilinogen Ur Leukocyte Esterase Urine WBC (Auto) Urine RBC (Auto) Ur Epithelial Cells Granular Casts Blood Type Antibody Screen 01/12/18 01/12/18 01/12/18 06:54 06:54 06:54 WBC RBC Hgb Hct MCV MCH MCHC RDW Plt Count MPV PT with INR 36.10 H* INR 3.19 H* D Sodium 139 Potassium 4.2 Chloride 101 Carbon Dioxide 30 Anion Gap 8 BUN 18 Creatinine 0.8 Creat Clearance w eGFR > 60 Random Glucose 106 Calcium 9.2 Phosphorus 4.0 Magnesium 2.1 Total Bilirubin GGT 23 AST ALT Alkaline Phosphatase Creatine Kinase Troponin I C-Reactive Protein 0.9 H Total Protein Albumin Urine Color Urine Appearance Urine pH Ur Specific [place] Urine Protein Urine Glucose (UA) Urine Ketones Urine Blood Urine Nitrite Urine Bilirubin Urine Urobilinogen Ur Leukocyte Esterase Urine WBC (Auto) Urine RBC (Auto) Ur Epithelial Cells Granular Casts Blood Type A POSITIVE Antibody Screen Negative 01/12/18 06:54 WBC RBC Hgb Hct MCV MCH MCHC RDW Plt Count MPV PT with INR INR Sodium Potassium Chloride Carbon Dioxide Anion Gap BUN Creatinine Creat Clearance w eGFR Random Glucose Calcium Phosphorus Magnesium Total Bilirubin GGT Cancelled AST ALT Alkaline Phosphatase Creatine Kinase Troponin I C-Reactive Protein Cancelled Total Protein Albumin Urine Color Urine Appearance Urine pH Ur Specific [place] Urine Protein Urine Glucose (UA) Urine Ketones Urine Blood Urine Nitrite Urine Bilirubin Urine Urobilinogen Ur Leukocyte Esterase Urine WBC (Auto) Urine RBC (Auto) Ur Epithelial Cells Granular Casts Blood Type Antibody Screen Active Medications Generic Name Dose Route Start Last Admin Trade Name Freq PRN Reason Stop Dose Admin Acetaminophen 650 mg 01/12/18 12:45 Tylenol - PO Q6HPO [facility] Atorvastatin Calcium 10 mg 01/12/18 22:00 Lipitor - PO HS MARK Cyclobenzaprine HCl 5 mg 01/12/18 10:53 Flexeril - PO TID PRN MUSCLE SPASMS Diltiazem HCl 120 mg 01/12/18 10:00 01/12/18 09:42 Cardizem Cd - PO 120 mg DAILY MARK Administration Docusate Sodium 100 mg 01/12/18 05:28 Colace - PO BID PRN CONSTIPATION Fluoxetine HCl 20 mg 01/12/18 10:00 01/12/18 10:19 Prozac - PO 20 mg DAILY [facility] Administration Furosemide 20 mg 01/12/18 10:00 01/12/18 09:42 Lasix - PO 20 mg DAILY [facility] Administration Ketorolac Tromethamine 30 mg 01/12/18 10:52 Toradol Injection - IVPUSH 01/15/18 05:27 Q6H PRN PAIN LEVEL 6-10 Lactobacillus Acidophilus 1 tab 01/12/18 10:00 01/12/18 09:42 Bacid - PO 1 tab DAILY [facility] Administration Lidocaine 2 patch 01/12/18 10:45 01/12/18 11:18 Lidoderm Patch - TP 2 patch DAILY [facility] Administration Metoprolol Succinate 25 mg 01/12/18 14:00 Toprol Xl - PO TID [facility] Miscellaneous 2 each 01/12/18 22:00 Lidoderm Patch Removal MC DAILY@2200 [facility] Oxybutynin Chloride 10 mg 01/12/18 22:00 Ditropan - PO HS MARK Pantoprazole Sodium 40 mg 01/12/18 12:15 Protonix - PO DAILY [facility] Prednisone 40 mg 01/12/18 06:45 01/12/18 06:48 Deltasone - PO 40 mg DAILY [facility] Administration Rivaroxaban 20 mg 01/12/18 18:00 Xarelto - PO DAILY@1800 [facility] Senna 2 tab 01/12/18 05:28 Senna - PO HS PRN CONSTIPATION Solifenacin 5 mg 01/12/18 10:00 01/12/18 09:42 Vesicare - PO 5 mg DAILY [facility] Administration ASSESSMENT/PLAN: Patient is a 77 y/o female with a history of afib, HTN, osteoperosis, and CHF who presents with low back pain. #Low back pain due to muscle strain vs herniation - Lumbar CT: forward sublaxation of L4 on L5 and L5 on S1 - Thoracic Xr: scoliosis and degenerative changes - negative red flag symptoms - prednisone 40 mg po daily - Flexeril 20 mg po daily - 2 lidoderm patches daily - Toradol 30 mg IV push q6h - tylenol 650 mg po q6h - Neuro, Dr. Vogt f/u - Ortho, Dr. Casper f/u #afib - cardizem 120 mg po daily - Rivaroxaban 20 mg po daily #HTN - Metoprolol succinate 25 mg po TID #CHF - atorvastatin 10 mg po daily - Furosemide 20 mg po daily #GERD - pantoprazole 40 mg po daily #depression - fluoxetine 20 mg po daily #constiaption -senna 2 tab prn - colace 100 mg po bid #urinary incontinence - Solifenacin 5 mg po daily - Oxybutynin 10 mg po daily Dispo: f/u neuro, f/u PT, f/u Ortho Visit type - Emergency Visit Emergency Visit: No - New Patient This patient is new to me today: Yes Date on this admission: 01/12/18 - Critical Care Critical Care patient: No
[2018-01-12] MEDS: ACETAMINOPHEN 325 MG TABLET (FP) PO SCH ×2 (14:11→17:20)
[2018-01-12] MEDS: PANTOPRAZOLE 40 MG TABLET (FP) PO SCH (14:12)
[2018-01-12] MEDS: metoPROLOL SUCCINATE 25 MG TAB.SR.24H (FP) PO SCH ×2 (14:12→21:32)
--- NOTE | 2018-01-12 17:01 | EKG ---
Test Reason : Blood Pressure : / mmHG Vent. Rate : 054 BPM Atrial Rate : 054 BPM P-R Int : 146 ms QRS Dur : 096 ms QT Int : 462 ms P-R-T Axes : 061 013 037 degrees QTc Int : 438 ms SINUS BRADYCARDIA WITH SINUS ARRHYTHMIA ANTEROSEPTAL INFARCT (CITED ON OR BEFORE 03-SEP-2013) ABNORMAL ECG Confirmed by MD MARC, PONCHO ([id number]) on 01/12/2018 5:00:57 PM Referred By: Confirmed By:PONCHO TRAN MD
--- NOTE | 2018-01-12 17:14 | PN ---
Progress Note (short form) - Note Progress Note: Pt seen and examined. She is a 77 year old female who lifted a heavy bin of papers (?) 3 days ago, c/om pain in the low back after that. Denies any h/o recent fall or other trauma. Denies any LE radiculopathy. C/o paraspinal muscle spasms. PE Not particularly tender over the T-L-S spine B/L are NVI Good ROM without pain of B/L LE No spasms seen Xrays and CT scan show an L2 compression fracture in an acceptable position, no spinal canal retropulsion, and severe global OA with mild scoliosis of the spine Imp acute L2 compression fx on top of sever multi level degenerative OA Rec OOB to chair P.T. for ambulation, WBAT ` Can DC from an orthopedic pov F/U as an out pt Consider muscle relaxants if paraspinal spasms continue
[2018-01-12] MEDS: RIVAROXABAN 20 MG TABLET PO SCH (21:32)
[2018-01-12] MEDS ORDERED: OXYBUTYNIN CHLORIDE 5 MG TABLET PO SCH (22:00)
[2018-01-12] MEDS ORDERED: ATORVASTATIN CA 10 MG TABLET (FP) PO SCH (22:00)
[2018-01-12] MEDS ORDERED: LIDOCAINE PATCH REMOVAL MC SCH ×2 (22:00)
[2018-01-12] MEDS ORDERED: CYCLOBENZAPRINE HCL 5 MG TABLET PO ONE (22:11)
[2018-01-13] MEDS: ACETAMINOPHEN 325 MG TABLET (FP) PO SCH ×4 (00:51→17:32)
[2018-01-13] MEDS: metoPROLOL SUCCINATE 25 MG TAB.SR.24H (FP) PO SCH ×2 (06:03→13:59)
[2018-01-13] MEDS ORDERED: PT OWN MED DRAWER 7, Y5N ONE ×2 (09:37→17:20)
[2018-01-13] MEDS: LACTOBACILLUS ACIDOPHILUS 1 TABLET PO SCH (09:41)
[2018-01-13] MEDS: predniSONE 20 MG TABLET (UD) PO SCH (09:42)
[2018-01-13] MEDS: FLUoxetine HCL 20 MG CAPSULE (FP) PO SCH (09:42)
[2018-01-13] MEDS: FUROSEMIDE 20 MG TABLET (FP) PO SCH (09:42)
[2018-01-13] MEDS: SOLIFENACIN SUCCINATE 5 MG TAB (FP) PO SCH (09:43)
[2018-01-13] MEDS: PANTOPRAZOLE 40 MG TABLET (FP) PO SCH (09:44)
[2018-01-13] MEDS: LIDOCAINE 5% TOPICAL PATCH TP SCH (09:44)
[2018-01-13] MEDS ORDERED: LIDOCAINE 5% TOPICAL PATCH TP SCH (10:00)
--- NOTE | 2018-01-13 11:46 | PN ---
Progress Note (short form) - Note Progress Note: Pt seen and examined. We discussed getting the MRI of her back. She continues to state that she does not have any LE neurological symptoms. The pain in the back, R>L, is improving. She would like to have the MRI but isn't sure she would have the kyphoplasty. She can f/u as an out pt for the compression fx
--- NOTE | 2018-01-13 12:28 | PN ---
Progress Note, Physician History of Present Illness: saw patient is doing much better the patient out of bed on the commode Patient was able to stand with a walker Again I spoke to the patient yesterday regarding the necessity for the MRI for the stability of the fracture MRI could've been done as an outpatient. - Current Medication List Current Medications: Active Medications Acetaminophen (Tylenol -) 650 mg PO Q6HPO [facility] Last Admin: 01/13/18 11:39 Dose: 650 mg Atorvastatin Calcium (Lipitor -) 10 mg PO HS [facility] Last Admin: 01/12/18 21:32 Dose: 10 mg Cyclobenzaprine HCl (Flexeril -) 5 mg PO TID PRN PRN Reason: MUSCLE SPASMS Diltiazem HCl (Cardizem Cd -) 120 mg PO DAILY [facility] Last Admin: 01/13/18 09:44 Dose: 120 mg Docusate Sodium (Colace -) 100 mg PO BID PRN PRN Reason: CONSTIPATION Fluoxetine HCl (Prozac -) 20 mg PO DAILY [facility] Last Admin: 01/13/18 09:42 Dose: 20 mg Furosemide (Lasix -) 20 mg PO DAILY [facility] Last Admin: 01/13/18 09:42 Dose: 20 mg Ketorolac Tromethamine (Toradol Injection -) 30 mg IVPUSH Q6H PRN PRN Reason: PAIN LEVEL 6-10 Stop: 01/15/18 05:27 Lactobacillus Acidophilus (Bacid -) 1 tab PO DAILY [facility] Last Admin: 01/13/18 09:41 Dose: 1 tab Lidocaine (Lidoderm Patch -) 2 patch TP DAILY [facility] Last Admin: 01/13/18 09:44 Dose: 2 patch Metoprolol Succinate (Toprol Xl -) 25 mg PO TID [facility] Last Admin: 01/13/18 06:03 Dose: 25 mg Miscellaneous (Lidoderm Patch Removal) 2 each MC DAILY@2200 [facility] Last Admin: 01/12/18 23:00 Dose: 2 each Oxybutynin Chloride (Ditropan -) 10 mg PO [facility] Last Admin: 01/12/18 21:32 Dose: 10 mg Pantoprazole Sodium (Protonix -) 40 mg PO DAILY [facility] Last Admin: 01/13/18 09:44 Dose: 40 mg Prednisone (Deltasone -) 40 mg PO DAILY [facility] Last Admin: 01/13/18 09:42 Dose: 40 mg Rivaroxaban (Xarelto -) 20 mg PO DAILY@1800 [facility] Last Admin: 01/12/18 21:32 Dose: 20 mg Senna (Senna -) 2 tab PO HS PRN PRN Reason: CONSTIPATION Solifenacin (Vesicare -) 5 mg PO DAILY [facility] Last Admin: 01/13/18 09:43 Dose: 5 mg - Objective Vital Signs: Vital Signs Temperature 98.2 F 01/13/18 05:00 Pulse Rate 55 L 01/13/18 05:00 Respiratory Rate 01/13/18 05:00 Blood Pressure 138/63 01/13/18 05:00 O2 Sat by Pulse Oximetry (%) 99 01/12/18 23:00 Constitutional: Yes: Well Nourished Eyes: Yes: WNL HENT: Yes: WNL Neurological: Yes: Alert, Oriented, Babinski negative ...Motor Strength: WNL Labs: CBC, BMP 01/12/18 06:54 01/12/18 06:54 INR, PTT INR 3.19 (0.83-1.09) H* D 01/12/18 06:54 Problem List - Problems (1) Back spasm Assessment/Plan: compression fracture chronic Osteoarthritis Degenerative disc disease Mild degree of spinal stenosis 1. Weight loss was advised. 2. Continue Flexeril. 3. Calcium with vitamin D. 4. Continue using the walker. 5. Physical therapy. 6. Lidocaine patch. 7. Await results of the MRI with possible discharge later today. Code(s): M62.830 - MUSCLE SPASM OF BACK (2) Compression fracture of lumbar vertebra Code(s): S32.000A - WEDGE COMPRESSION FRACTURE OF UNSP LUMBAR VERTEBRA, INIT Qualifiers: Encounter type: initial encounter Lumbar vertebra fracture level: L2 Fracture type: closed Qualified Code(s): S32.020A - Wedge compression fracture of second lumbar vertebra, initial encounter for closed fracture
--- NOTE | 2018-01-13 15:18 | PN ---
Teaching Attending Note Name of Resident: Marilyn Skinner ATTENDING PHYSICIAN STATEMENT I saw and evaluated the patient. I reviewed the resident's note and discussed the case with the resident. I agree with the resident's findings and plan as documented. SUBJECTIVE: Patient is feeling better able to ambulate OBJECTIVE: Vital Signs Temperature 98.2 F 01/13/18 05:00 Pulse Rate 55 L 01/13/18 05:00 Respiratory Rate 18 01/13/18 05:00 Blood Pressure 138/63 01/13/18 05:00 O2 Sat by Pulse Oximetry (%) 99 01/12/18 23:00 CBCD WBC 10.3 K/mm3 (4.0-10.0) H 01/12/18 06:54 RBC 4.31 M/mm3 (3.60-5.2) 01/12/18 06:54 Hgb 13.4 GM/dL (10.7-15.3) 01/12/18 06:54 Hct 38.7 % (32.4-45.2) 01/12/18 06:54 MCV 89.7 fl (80-96) 01/12/18 06:54 MCHC 34.7 g/dl (32.0-36.0) 01/12/18 06:54 RDW 13.9 % (11.6-15.6) 01/12/18 06:54 Plt Count 344 K/MM3 (134-434) 01/12/18 06:54 MPV 9.4 fl (7.5-11.1) D 01/12/18 06:54 CMP Sodium 139 mmol/L (136-145) 01/12/18 06:54 Potassium 4.2 mmol/L (3.5-5.1) 01/12/18 06:54 Chloride 101 mmol/L (98-107) 01/12/18 06:54 Carbon Dioxide 30 mmol/L (21-32) 01/12/18 06:54 Anion Gap 8 (8-16) 01/12/18 06:54 BUN 18 mg/dL (7-18) 01/12/18 06:54 Creatinine 0.8 mg/dL (0.55-1.02) 01/12/18 06:54 Creat Clearance w eGFR > 60 (>60) 01/12/18 06:54 Random Glucose 106 mg/dL (74-106) 01/12/18 06:54 Calcium 9.2 mg/dL (8.5-10.1) 01/12/18 06:54 Total Bilirubin 0.4 mg/dL (0.2-1.0) 01/12/18 00:30 AST 25 U/L (15-37) 01/12/18 00:30 ALT 21 U/L (12-78) 01/12/18 00:30 Alkaline Phosphatase 79 U/L (45-117) 01/12/18 00:30 Total Protein 6.7 g/dl (6.4-8.2) 01/12/18 00:30 Albumin 3.1 g/dl (3.4-5.0) L 01/12/18 00:30 CARDIAC ENZYMES Creatine Kinase 69 IU/L (26-192) 01/12/18 00:30 Troponin I < 0.02 ng/ml (0.00-0.05) 01/12/18 00:30 Current Medications Generic Name Dose Route Start Last Admin Trade Name Freq PRN Reason Stop Dose Admin Acetaminophen 650 mg 01/12/18 12:45 01/13/18 11:39 Tylenol - PO 650 mg Q6HPO MARK Administration Atorvastatin Calcium 10 mg 01/12/18 22:00 01/12/18 21:32 Lipitor - PO 10 mg HS MARK Administration Cyclobenzaprine HCl 5 mg 01/12/18 10:53 Flexeril - PO TID PRN MUSCLE SPASMS Diltiazem HCl 120 mg 01/12/18 10:00 01/13/18 09:44 Cardizem Cd - PO 120 mg DAILY MARK Administration Docusate Sodium 100 mg 01/12/18 05:28 Colace - PO BID PRN CONSTIPATION Fluoxetine HCl 20 mg 01/12/18 10:00 01/13/18 09:42 Prozac - PO 20 mg DAILY MARK Administration Furosemide 20 mg 01/12/18 10:00 01/13/18 09:42 Lasix - PO 20 mg DAILY MARK Administration Ketorolac Tromethamine 30 mg 01/12/18 10:52 Toradol Injection - IVPUSH 01/15/18 05:27 Q6H PRN PAIN LEVEL 6-10 Lactobacillus Acidophilus 1 tab 01/12/18 10:00 01/13/18 09:41 Bacid - PO 1 tab DAILY MARK Administration Lidocaine 2 patch 01/12/18 10:45 01/13/18 09:44 Lidoderm Patch - TP 2 patch DAILY MARK Administration Metoprolol Succinate 25 mg 01/12/18 14:00 01/13/18 13:59 Toprol Xl - PO 25 mg TID MARK Administration Miscellaneous 2 each 01/12/18 22:00 01/12/18 23:00 Lidoderm Patch Removal MC 2 each DAILY@2200 MARK Administration Oxybutynin Chloride 10 mg 01/12/18 22:00 01/12/18 21:32 Ditropan - PO 10 mg HS MARK Administration Pantoprazole Sodium 40 mg 01/12/18 12:15 01/13/18 09:44 Protonix - PO 40 mg DAILY MARK Administration Prednisone 40 mg 01/12/18 06:45 01/13/18 09:42 Deltasone - PO 40 mg DAILY MARK Administration Rivaroxaban 20 mg 01/12/18 18:00 01/12/18 21:32 Xarelto - PO 20 mg DAILY@1800 MARK Administration Senna 2 tab 01/12/18 05:28 Senna - PO HS PRN CONSTIPATION Solifenacin 5 mg 01/12/18 10:00 01/13/18 09:43 Vesicare - PO 5 mg DAILY MARK Administration Home Medications Medication Instructions Recorded Fluoxetine HCl [Prozac] 20 mg PO DAILY 10/04/12 Oxybutynin Chloride [Oxybutynin 10 mg PO HS 10/04/12 Chloride ER] Atorvastatin Ca [Lipitor] 10 mg PO HS 09/03/13 Diclofenac Sodium 75 mg PO BID 09/03/13 Diltiazem HCl [Diltiazem 24Hr ER] 120 mg PO DAILY 09/03/13 L.acidoph,Paracasei, B.lactis 1 each PO DAILY 05/02/16 [Probiotic] Furosemide [Lasix -] 20 mg PO DAILY #30 tablet 05/03/16 Rivaroxaban [Xarelto -] 20 mg PO DAILY #30 tablet 05/03/16 Solifenacin Succinate [Vesicare -] 5 mg PO DAILY tab 05/03/16 Famotidine [Pepcid] 20 mg PO DAILY 01/12/18 Metoprolol Succinate [Toprol XL -] 25 mg PO TID 01/12/18 PE: per resident's note ASSESSMENT AND PLAN: 77 y/o lady with h/o A fib on xarelto, HTN and OA who presented with severe lower back pain after lifting up heavy boxes. # Lower back pain: No compression Fx, .MRI ordered waiting for the result. possible disk herniation . anterior subluxation on CT scan is likely chronic. No motor deficit, Pt. is able to ambulate, lidocaine patch, flexeril continue , on steroid continue # H/o A fib, cont her toprol ( confirmed with patient bottle ) TID , continue cardizem and xarelto # H/o HTN: cont meds DVT Px: Xarelto
[2018-01-13 15:32] VITALS: BP 108/60; PULSE 53; TEMP 98.5
[2018-01-13] MEDS: RIVAROXABAN 20 MG TABLET PO SCH (17:32)
--- NOTE | 2018-01-14 07:26 | DS ---
Physical Exam: SUBJECTIVE: Patient is a 77 y/o female with a history of afib, HTN, osteoperosis, and CHF who presents with low back pain. She reports she is still having the pain and has frequent back spasms. She has no complaints, Able to walk with PT for over 80 feet. Hopes to go home today. OBJECTIVE: Vital Signs Period Temp Pulse Resp BP Sys/Kent Pulse Ox Last 24 Hr 98.5 F 53 18 108/60 PHYSICAL EXAM GENERAL: The patient is awake, alert, and fully oriented, in no acute distress. HEAD: Normal with no signs of trauma. EYES: PERRL, extraocular movements intact, NECK: Trachea midline, full range of motion, supple. LUNGS: Breath sounds equal, clear to auscultation bilaterally HEART: Regular rate and rhythm ABDOMEN: Soft, nontender, nondistended, normoactive bowel sounds MSK: no tenderness to palpation on lower back, negative straight leg raise bilaterally, no numbness or tingling EXTREMITIES: 2+ pulses, warm, well-perfused NEUROLOGICAL: Cranial nerves II through XII grossly intact. Normal speech PSYCH: Normal mood, normal affect. SKIN: Warm, dry, normal turgor, no rashes or lesions noted LABS Laboratory Results - last 24 hr 01/13/18 01/13/18 01/13/18 07:06 07:06 07:06 ESR 46 H Hemoglobin A1c % 6.3 H TSH 1.15 RPR Titer 01/13/18 07:06 ESR Hemoglobin A1c % TSH RPR Titer Nonreactive HOSPITAL COURSE: Date of Admission:01/12/18 Patient is a 77 y/o female with a history of afib, HTN, osteoperosis, and CHF who presents with low back pain. She has been seeing her PCP but the pain has not resolved. Patient given prednisone, FLexeril, lidoderm patches and Toradol. Lumbar CT: forward sublaxation of L4 on L5 and L5 on S1 Thoracic Xr: scoliosis and degenerative changes Lumbar MRI: subchondral edema Per Neurology consult; continue Flexaril, lidocaine patches, and physical therapy. Patient has a compression fracture at L2, only conservative management at this time. Patient also has osteoarthritis, degenerative disc disease and mild degree spinal stenosis. Ortho consult did not recommend surgery at this time but also recommended conservative therapy. Patient able to walk at base line with walker with PT. Patient sent home with flexaril and tylenol for pain management. Patient has visiting nursing with her during the day. Patient stable and discharged home. Date of Discharge: 01/14/18 Minutes to complete discharge: 35 Discharge Summary Reason For Visit: SPASM OF BACK MUSCLES, AFIB Condition: Improved - Instructions Diet, Activity, Other Instructions: You presented to the ED with low back pain. You were given pain medications that helped relieve your pain. You will continue to take Tylenol 650 mg by mouth every six hours as needed to control your pain. To help with the spasms you can take Flexiril 5mg by mouth up to three times a day. This medication can cause drowsiness and dizziness. You should not drink alcohol on this medication. You should not drive or operate heavy machinery while taking this medicine. We are also sending you home with lidocaine patches for your back. please only attach a maximum of 2 to your back at one time. Please remove your old patches before putting new patches on. The orthopedist, Dr. Rogers, saw you and suggested no intervention at this time. Please follow up with him for further treatment. The Neurologist, Dr. Vogt, examined you and does not feel you have any neurological problems which need to be treated at this time. You had a MRI done that shows some inflammation in your spine which needs to be followed up on. You should call his office to schedule a follow up appointment within one week. Physical therapy saw you and suggested you follow up with a physical therapist out patient. You can arrange for a physical therapist to come to your home or schedule an appointment. You should continue to take your home medications as prescribed. Please follow up with your Primary Care Physician within one week. Please return to the Emergency department if you have any worsening of symptoms , headache, fever, chills, diarrhea, or vomiting. Referrals: Vira Brownlee MD [Primary Care Provider] - Juan C Vogt MD [Staff Physician] - Nathan Rogers MD [Staff Physician] - Disposition: HOME - Home Medications Comprehensive Discharge Medication List: Ambulatory Orders Fluoxetine HCl [Prozac] 20 mg PO DAILY 10/04/12 Oxybutynin Chloride [Oxybutynin Chloride ER] 10 mg PO HS 10/04/12 Atorvastatin Ca [Lipitor] 10 mg PO HS 09/03/13 Diclofenac Sodium 75 mg PO BID 09/03/13 Diltiazem HCl [Diltiazem 24Hr ER] 120 mg PO DAILY 09/03/13 L.acidoph,Paracasei, B.lactis [Probiotic] 1 each PO DAILY 05/02/16 Furosemide [Lasix -] 20 mg PO DAILY #30 tablet 05/03/16 Rivaroxaban [Xarelto -] 20 mg PO DAILY #30 tablet 05/03/16 Solifenacin Succinate [Vesicare -] 5 mg PO DAILY tab 05/03/16 Famotidine [Pepcid] 20 mg PO DAILY 01/12/18 Metoprolol Succinate [Toprol XL -] 25 mg PO TID 01/12/18 Acetaminophen [Tylenol .Regular Strength -] 650 mg PO Q6HPO #28 tablet 01/13/18 Aspirin [ASA -] 81 mg PO DAILY tab.chew 01/13/18 Cyclobenzaprine HCl [Flexeril -] 5 mg PO TID PRN #40 tablet 01/13/18 Lidocaine 5% Patch [Lidoderm -] 2 patch TP DAILY #14 patch 01/13/18 This patient is new to me today: No Emergency Visit: No Critical Care patient: No - Discharge Referral Referred to [facility] No
[2018-01-14 16:33] LABS: MYOGLOBIN SERUM 35 ng/mL (25-58)
== END 2018-01-13 21:02 | disposition home or self-care (01) ==
LOC: JER 19:02 → JERBED 01-12 05:19 → J6S 01-12 08:04
PROVIDERS: ADMIT Internal Medicine; ATTEND Internal Medicine
PROC: 3E0333Z Introduction of Anti-inflammatory into Peripheral Vein, Percutaneous Approach (ICD-10-PCS; principal; 2018-01-12)
PROC: 3E033NZ Introduction of Analgesics, Hypnotics, Sedatives into Peripheral Vein, Percutaneous Approach (ICD-10-PCS; 2018-01-12)
DX: M62.830 Muscle spasm of back (principal); I48.2 Chronic atrial fibrillation; E78.5 Hyperlipidemia, unspecified; M19.90 Unspecified osteoarthritis, unspecified site; I50.9 Heart failure, unspecified; I11.0 Hypertensive heart disease with heart failure; S32.020A Wedge compression fracture of second lumbar vertebra, initial encounter for closed fracture; E66.9 Obesity, unspecified; Z68.42 Body mass index [BMI] 45.0-49.9, adult; R73.9 Hyperglycemia, unspecified; K21.9 Gastro-esophageal reflux disease without esophagitis; F32.9 Major depressive disorder, single episode, unspecified; R32 Unspecified urinary incontinence; K59.00 Constipation, unspecified; M47.9 Spondylosis, unspecified; Z86.73 Personal history of transient ischemic attack (TIA), and cerebral infarction without residual deficits; Z79.82 Long term (current) use of aspirin; Z79.01 Long term (current) use of anticoagulants; Z88.0 Allergy status to penicillin; Z88.1 Allergy status to other antibiotic agents; Z88.2 Allergy status to sulfonamides; X50.0XXA Overexertion from strenuous movement or load, initial encounter; Y93.89 Activity, other specified; Y92.9 Unspecified place or not applicable
CPT/HCPCS: 36415; 71045-TC-FY; 72070-TC-FY; 72100-TC-FY; 72131-TC; 72148-TC; 80048; 80053; 81003; 81015; 82550; 82977; 83036; 83735; 83874; 84100; 84443; 84484; 85027; 85610; 85651; 86038; 86140; 86593; 86850; 86900; 86901; 93005; 93010; 96374; 96375; 97116-GP; 97162-GP; 99283-25; G0378; J0131

== ENCOUNTER 2019-06-29 15:01 | Emergency (ER) | payer OTHER, BC ==
[2019-06-29 15:11] VITALS: BMI 38.7
--- NOTE | 2019-06-29 15:24 | PDOC ---
Rapid Medical Evaluation Chief Complaint: Vaginal Bleeding Medical Evaluation: Allergies Allergy/AdvReac Type Severity Reaction Status Date / Time ampicillin [Ampicillin] Allergy Verified 01/11/18 19:48 Penicillins Allergy Verified 01/11/18 19:48 Sulfa (Sulfonamide Allergy Verified 01/11/18 19:48 Antibiotics) Tetracyclines Allergy Verified 01/11/18 19:48 erythromycin base AdvReac Rash Verified 01/11/18 19:48 [Erythromycin Base] Vital Signs Temp Pulse Resp BP Pulse Ox 97.9 F 51 L 16 131/56 L 95 06/29/19 15:07 06/29/19 15:07 06/29/19 15:07 06/29/19 15:07 06/29/19 15:07 06/29/19 15:20 Pt presents for vaginal bleeding for one day. She states that the blood did come from her vagina. She notes it was dark red blood/clots. Denies urinary discomfort, rectal bleeding. She states she filled one sanitary napkin prior to arrival. Exam: pelvic deferred to provider. AAOx3 ambulatory with walker Orders: labs, urine, TVUS Pt to proceed to the ER for further evaluation. Discharge Disposition - Diagnosis Vaginal bleeding - Discharge Dispostion Condition at time of disposition: Stable - Referrals - Patient Instructions - Post Discharge Activity
--- NOTE | 2019-06-29 16:49 | PDOC ---
History of Present Illness - General Chief Complaint: Vaginal Bleeding Stated Complaint: PAIN Time Seen by Provider: 06/29/19 15:24 History Source: Patient Exam Limitations: No Limitations - History of Present Illness Initial Comments: Rhonda Monroy is a 79 yo morbidly obese F w a hx of NIDDM, HTN, HCL, A-fib (On Xarelto), Heart failure, and OA who presents to the [facility] er with lower abdominal pain since this morning at 3 am. The lower abdominal pain is associated with multiple blood clots being expelled and the patient states she has saturated two pads since this bleeding began. Patient endorses dysuria, frequency, and urgency. She denies weight loss, fevers, chills, back pain, syncope, nausea, vomiting, diarrhea, constipation, chest pain, SOB, difficulty breathing PCP: Vira Adams PSH: None reported Allergies: Tetracylcines, erythromycin, ampicillin, penicillins, sulfa Social Hx: Independent in ADL. Denies smoking, drinking, or other substance usage Past History - Past Medical History Allergies/Adverse Reactions: Allergies Allergy/AdvReac Type Severity Reaction Status Date / Time ampicillin [Ampicillin] Allergy Verified 01/11/18 19:48 Penicillins Allergy Verified 01/11/18 19:48 Sulfa (Sulfonamide Allergy Verified 01/11/18 19:48 Antibiotics) Tetracyclines Allergy Verified 01/11/18 19:48 erythromycin base AdvReac Rash Verified 01/11/18 19:48 [Erythromycin Base] Home Medications: Ambulatory Orders Atorvastatin Ca [Lipitor] 10 mg PO HS 09/03/13 Diltiazem HCl [Diltiazem 24Hr ER] 120 mg PO DAILY 09/03/13 Furosemide [Lasix -] 20 mg PO DAILY #30 tablet 05/03/16 Rivaroxaban [Xarelto -] 20 mg PO DAILY #30 tablet 05/03/16 Famotidine [Pepcid] 20 mg PO DAILY 01/12/18 Metoprolol Succinate [Toprol XL -] 25 mg PO TID 01/12/18 Nitrofurantoin Monohyd/M-Cryst [Macrobid -] 100 mg PO BID 5 Days #10 capsule Solifenacin Succinate [Vesicare -] 10 mg PO DAILY 06/29/19 Anemia: Yes Asthma: No Cancer: No Cardiac Disorders: Yes (a-fib/chest pain) CVA: Yes (TIA) COPD: No CHF: Yes Dementia: No Diabetes: No GI Disorders: No Disorders: No HTN: Yes Hypercholesterolemia: Yes Liver Disease: No Seizures: No Thyroid Disease: No - Surgical History Abdominal Surgery: No Appendectomy: No Cardiac Surgery: No Cholecystectomy: No Lung Surgery: No Neurologic Surgery: No Orthopedic Surgery: Yes (arthroscopic/rt knee) - Immunization History Immunization Up to Date: No - Psycho Social/Smoking Cessation Hx Smoking Status: No Smoking History: Never smoked Have you smoked in the past 12 months: No Number of Cigarettes Smoked Daily: 0 Cigars Per Day: 0 Information on smoking cessation initiated: No Hx Alcohol Use: No Drug/Substance Use Hx: No Substance Use Type: None Hx Substance Use Treatment: No Review of Systems - Review of Systems Able to Perform ROS?: Yes Comments:: CONSTITUTIONAL: Absent: fever, no chills, no fatigue EYES: Absent: visual changes ENT: Absent: ear pain, no sore throat CARDIOVASCULAR: Absent: chest pain, no palpitations RESPIRATORY: Absent: cough, no SOB GI: Present: Abdominal pain Absent: no nausea, no vomiting, no constipation, no diarrhea GENITOURINARY: Present: Hematuria Absent: dysuria, no frequency MUSKULOSKELETAL: Absent: back pain, no arthralgia, no myalgia SKIN: Absent: rash NEURO: Absent: headache *Physical Exam - Vital Signs Last Vital Signs Temp Pulse Resp BP Pulse Ox 97.9 F 51 L 16 131/56 L 95 06/29/19 15:07 06/29/19 15:07 06/29/19 15:07 06/29/19 15:07 06/29/19 15:07 - Physical Exam GENERAL: Well-appearing, well-nourished. No apparent distress. HEENT: Normocephalic, atraumatic. PERRL, EOM intact. CARDIOVASCULAR: Normal S1, S2. Regular rate and rhythm. PULMONARY: No evidence of respiratory distress. Lungs clear to auscultation bilaterally. No wheezing, rales or rhonchi. ABDOMEN: Mild suprapubic TTP. Soft, non-distended. EXTREMITIES: Normal ROM in all four extremities. No gross deformities. SKIN: Warm, dry. No rash NEUROLOGICAL: No focal neurological deficits. ED Treatment Course - LABORATORY CBC & Chemistry Diagram: 06/29/19 16:30 06/29/19 16:30 - RADIOLOGY Radiograph Interpretation: TVUS: EXAM#: TYPE/EXAM: RESULT: [id number] US/TRANSVAGINAL ULTRASOUND US HISTORY PROVIDED: Postmenopausal bleeding. Real time examination of the pelvis utilizing both the transabdominal and transvaginal probes demonstrates the following: The uterus is normal in size measuring 0.3 x 4.7 x 2.9 cm. No uterine masses are seen. An irregular endometrium of 6 mm thickness is identified. In light of the clinical history of postmenopausal bleeding, the possibility of an endometrial malignancy cannot be excluded. A pelvic MRI may be warranted, if clinically indicated. The ovaries could not be identified. There is no evidence of adnexal masses or free pelvic fluid collections. IMPRESSION: Irregular endometrium, otherwise normal pelvic sonogram. Clinical correlation and follow-up recommended. Please see above discussion. Medical Decision Making - Medical Decision Making Rhonda Monroy is a 79 yo morbidly obese F w a hx of NIDDM, HTN, HCL, A-fib (On Xarelto), Heart failure, and OA who presents to the [facility] er with lower abdominal pain since this morning at 3 am. The lower abdominal pain is associated with multiple blood clots being expelled and the patient states she has saturated two pads since this bleeding began. Patient endorses dysuria, frequency, and urgency. Vital Signs Temp Pulse Resp BP Pulse Ox 97.9 F 51 L 16 131/56 L 95 06/29/19 15:07 06/29/19 15:07 06/29/19 15:07 06/29/19 15:07 06/29/19 15:07 DDx IBNLT: UTI/Pylo, Electrolyte/metabolic disturbance, anemia, bladder/ endometrial cancer Plan: cbc, TVUS, analgesia, re-assess cbc: no anemia TVUS: Irregular endometrium, otherwise normal pelvic sonogram. - Patient given full report of her US exam - Patient instructed on strict need for BUNG SEWER fu for outpatient MRI Urine: Supports UTI - treating with macrobid, sent to pharmacy Dispo: Home with BUNG SEWER FU Discharge - Discharge Information Problems reviewed: Yes Clinical Impression/Diagnosis: Vaginal bleeding UTI (urinary tract infection) Qualifiers: Urinary tract infection type: acute cystitis Hematuria presence: with hematuria Qualified Code(s): N30.01 - Acute cystitis with hematuria Condition: Stable Disposition: HOME - Admission No - Additional Discharge Information Prescriptions: Nitrofurantoin Monohyd/M-Cryst [Macrobid -] 100 mg PO BID 5 Days #10 capsule - Follow up/Referral Referrals: Vira Brownlee MD [Primary Care Provider] - Jemima Crowder MD [Staff Physician] - Yesenia Miller MD [Staff Physician] - Delroy Morrison MD [Staff Physician] - Salvatore Lau MD [Staff Physician] - - Patient Discharge Instructions Patient Printed Discharge Instructions: Urinary Tract Infection, DI for Vaginal Bleeding Additional Instructions: You came into the ER with vaginal bleeding. We did an ultrasound which showed an irregular endometrium. We handed you a copy of your ultrasound report. You MUST schedule a follow up appointment with an [facility] doc to get an MRI as an outpatient. We have given you the number of multiple doctors in the area. Please make sure to schedule this appoinment ANA. Come back to the ER immediately if you experience further bleeding, have abdominal pain, pass out, feel lightheaded, or have any other new or worsening concerns. You have a urinary tract infection. 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 Thank you for coming to the [facility] ER. We hope you feel better soon! Print Language: GREEK - Post Discharge Activity
[2019-06-29 16:59] LABS: BASO % 0.5 % (0-2.0); EOS % 1.1 % (0-4.5); HEMATOCRIT 42.5 % (32.4-45.2); LYMPH % 21.6 % (8-40); MCH 30.4 pg (25.7-33.7); MCHC 32.9 g/dl (32.0-36.0); MEAN CELL VOLUME 92.2 fl (80-96); MEAN PLT VOLUME 8.1 fl (7.5-11.1); MONO % 7.6 % (3.8-10.2); NEUT % 69.2 % (42.8-82.8); PLATELET COUNT 212 K/MM3 (134-434); RBC 4.61 M/mm3 (3.60-5.2); RDW 16.5 % (11.6-15.6); WHITE BLOOD COUNT 8.9 K/mm3 (4.0-10.0)
[2019-06-29 17:14] LABS: EPI CELLS 0.5 /HPF (0-5/HPF); HYALINE CASTS 14 /lpf (0-8); URINE APPEARANCE CLEAR; URINE BACTERIA 322.6 /hpf (NEGATIVE); URINE BILIRUBIN NEGATIVE (NEGATIVE); URINE COLOR YELLOW; URINE GLUCOSE (UA) NEGATIVE (NEGATIVE); URINE KETONE NEGATIVE (NEGATIVE); URINE LEUK ESTERASE 2+ (NEGATIVE); URINE NITRITE NEGATIVE (NEGATIVE); URINE PROTEIN NEGATIVE (NEGATIVE); URINE RBC 92 /hpf (0-4); URINE UROBILINOGEN 0.2 mg/dL (0.2-1.0); URINE WBC 44 /hpf (0-5)
[2019-06-29 17:32] LABS: INR 1.51 (0.83-1.09); PROTHROMBIN TIME (PATIENT) 17.9 SEC (9.7-13.0)
[2019-06-29 17:57] VITALS: BP 123/68; PULSE 60; TEMP 98
--- NOTE | 2019-06-29 18:30 | PDOC ---
Documentation entered by Jammie Kruger SCRIBE, acting as scribe for Lashell Quan MD. Lashell Quan MD: This documentation has been prepared by the Slick martinez Nirvannie, SCRIBE, under my direction and personally reviewed by me in its entirety. I confirm that the documentation accurately reflects all work, treatment, procedures, and medical decision making performed by me. Attending Attestation - Resident Resident Name: Sergio Gordon - ED Attending Attestation I have performed the following: I have examined & evaluated the patient, The case was reviewed & discussed with the resident, I agree w/resident's findings & plan, Exceptions are as noted - HPI HPI: 06/29/19 17:46 The patient is a 79 year old female, with a significant past medical history of NIDDM, HTN, HLD, Afib (On Xarelto), CHF, morbid obesity and osteoarthritis, who presents to the emergency department with 1 day of pelvic pain with associated vaginal bleeding described as clots (2 pads since 3am). She denies recent dysuria, frequency, urgency or hematuria. She denies recent chest pain or shortness of breath. Allergies: Tetracyclines, Erythromycin, Ampicillin, Penicillins, Sulfa Past surgical history: None reported. Social history: Nonsmoker. Denies EtOH use and recreational drug use. Primary Care Physician: Dr. Vira Adams - Physicial Exam PE: 06/29/19 18:16 GENERAL: Well-appearing, well-nourished. No apparent distress. HEENT: Normocephalic, atraumatic. PERRL, EOM intact. CARDIOVASCULAR: Normal S1, S2. Regular rate and rhythm. PULMONARY: No evidence of respiratory distress. Lungs clear to auscultation bilaterally. No wheezing, rales or rhonchi. ABDOMEN: Mild suprapubic TTP. Soft, non-distended. EXTREMITIES: Normal ROM in all four extremities. No gross deformities. SKIN: Warm, dry. No rash NEUROLOGICAL: No focal neurological deficits. - Medical Decision Making 06/29/19 18:17 DDx IBNLT: UTI/Pylo, Electrolyte/metabolic disturbance, anemia, bladder/ endometrial cancer Plan: cbc, TVUS, analgesia, re-assess Laboratory Tests 06/29/19 06/29/19 06/29/19 16:30 16:30 16:30 Hgb 14.0 Hct 42.5 INR 1.51 H Urine Blood 3+ H Urine Nitrite Negative Ur Leukocyte Esterase 2+ H Urine WBC (Auto) 44 Urine RBC (Auto) 92 06/29/19 18:17 TVUS: Irregular endometrium, otherwise normal pelvic sonogram. 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
--- NOTE | 2019-06-30 11:56 | EKG ---
Test Reason : Blood Pressure : / mmHG Vent. Rate : 052 BPM Atrial Rate : 052 BPM P-R Int : 134 ms QRS Dur : 092 ms QT Int : 450 ms P-R-T Axes : 020 -05 032 degrees QTc Int : 418 ms SINUS BRADYCARDIA INFERIOR INFARCT , AGE UNDETERMINED ANTERIOR INFARCT (CITED ON OR BEFORE 03-SEP-2013) ABNORMAL ECG WHEN COMPARED WITH ECG OF 11-JAN-2018 22:10, QUESTIONABLE CHANGE IN INITIAL FORCES OF ANTERIOR LEADS Confirmed by FABIOLA EDOUARD MD ([id number]) on 06/30/2019 11:56:03 AM Referred By: Confirmed By:FABIOLA EDOUARD MD
== END 2019-06-29 18:20 | disposition home or self-care (01) ==
LOC: JER 15:01
DX: N30.01 Acute cystitis with hematuria (principal); N93.9 Abnormal uterine and vaginal bleeding, unspecified; E66.01 Morbid (severe) obesity due to excess calories; Z88.8 Allergy status to other drugs, medicaments and biological substances; Z88.0 Allergy status to penicillin; Z88.2 Allergy status to sulfonamides; E11.9 Type 2 diabetes mellitus without complications; I10 Essential (primary) hypertension; I48.91 Unspecified atrial fibrillation; Z79.01 Long term (current) use of anticoagulants; I50.9 Heart failure, unspecified; M19.90 Unspecified osteoarthritis, unspecified site
CPT/HCPCS: 36415; 76830-TC; 81003; 85025; 85610; 87086; 87186; 93005; 93010; 99284-25